=== PATIENT | female | born 1965 ===

== ENCOUNTER 2016-10-20 13:58 | Emergency (ER) | payer OTHER ==
[2016-10-20 14:00] VITALS: BMI 28.3
[2016-10-20 14:08] VITALS: BP 140/66; PULSE 60; RESP 16; TEMP 97.5; O2SAT 98
--- NOTE | 2016-10-20 14:29 | ED PDOC ---
Lower Extremity Pain/Injury Time Seen by Provider: 10/20/16 14:30 Chief Complaint (Nursing): Lower Extremity Problem/Injury Chief Complaint (Provider): Lower extremity problem History Per: Patient History/Exam Limitations: no limitations Onset/Duration Of Symptoms: Days (5x) Current Symptoms Are (Timing): Still Present Severity: Moderate Additional Complaint(s): 50 year old female with no pertinent medical history presents to the ED with complaints of painful blister to left leg that she noticed 5 days ago. Patient thinks blister may have formed due to her varicose veings. She denies any injury or trauma to the area. She reports that she has been taking ibuprofen for the pain with mild relief and denies having difficulty walking. She denies having any other associated symptoms. PMD: [place]aug[place] Emmy Past Medical History Reviewed: Historical Data, Nursing Documentation, Vital Signs Vital Signs: Last Vital Signs Temp 97.5 F L 10/20/16 14:06 Pulse 60 10/20/16 14:06 Resp 16 10/20/16 14:06 BP 140/66 10/20/16 14:06 Pulse Ox 98 10/20/16 14:06 - Medical History PMH: No Chronic Diseases - Surgical History Other surgeries: hysterectomy (2001) - Family History Family History: States: No Known Family Hx - Living Arrangements Living Arrangements: With Family - Social History Current smoker - smoking cessation education provided: No Alcohol: None Drugs: Denies - Home Medications Home Medications: Ambulatory Orders Medication Instructions Recorded No Known Home Med 10/20/16 - Allergies Allergies/Adverse Reactions: Allergies Allergy/AdvReac Type Severity Reaction Status Date / Time No Known Allergies Allergy Verified 10/20/16 14:06 Wells Criteria for PE - Wells Criteria for Pulmonary Embolism Clinical Signs and Symptoms of DVT: No P.E is #1 Diagnosis, or Equally Likely: No Heart Rate >100: No Immobilization at least 3 days;Surgery previous 4 weeks: No Previous, objectively diagnosed PE or DVT: No Hemoptysis: No Malignancy w/treatment within 6 months, or palliative: No Total Score: 0 Review of Systems ROS Statement: Except As Marked, All Systems Reviewed And Found Negative Constitutional: Negative for: Fever Respiratory: Negative for: Shortness of Breath, SOB with Exertion Musculoskeletal: Positive for: Other (blister to left leg) Physical Exam - Reviewed Nursing Documentation Reviewed: Yes Vital Signs Reviewed: Yes - Physical Exam Appears: Positive for: Well, Non-toxic, No Acute Distress Head Exam: Positive for: ATRAUMATIC, NORMOCEPHALIC Skin: Positive for: Normal Color. Negative for: Rash Eye Exam: Positive for: Normal appearance Cardiovascular/Chest: Positive for: Regular Rate, Rhythm Respiratory: Positive for: Normal Breath Sounds. Negative for: Respiratory Distress Extremity: Positive for: Normal ROM, Other (small blood blister noted to left anterior garrett. No surrounding erythema. No erythematous streaking, normal distal sensation). Negative for: Pedal Edema, Calf Tenderness (no calf tenderness or swelling) Neurologic/Psych: Positive for: Alert, Oriented (3x), Gait (steady) - ECG O2 Sat by Pulse Oximetry: 98 (RA) Pulse Ox Interpretation: Normal Medical Decision Making Medical Decision Makin:30 Initial impression: 50 year old female with a blood blister likely secondary to underlying varicose vein. No active bleeding noted, skin is intact, no acute infection noted. Initial plan: * Patient is educated to ice the affected leg and elevate and tocontinue taking ibuprofen for the pain * Patient is instructed to follow up with clinic. Scribe Attestation: Documented by Piper Medeiros, acting as a scribe for Ines Richards PA-C. Provider Scribe Attestation: All medical record entries made by the Scribe were at my direction and personally dictated by me. I have reviewed the chart and agree that the record accurately reflects my personal performance of the history, physical exam, medical decision making, and the department course for this patient. I have also personally directed, reviewed, and agree with the discharge instructions and disposition. Disposition - Clinical Impression Clinical Impression: Blood blister, Varicose vein of leg - Patient ED Disposition Is Patient to be Admitted: No Counseled Patient/Family Regarding: Diagnosis, Need For Followup - Disposition Referrals: [facility] [Outside] Disposition: Routine/Home Disposition Time: 14:49 Condition: STABLE Additional Instructions: Ice affected area and elevate leg. Ibuprofen for pain. Follow up with clinic in 2-3 days, return any time if acutely worse. Instructions: Blister (ED), Varicose Veins (ED) Print Language: [place]
== END 2016-10-20 14:55 | disposition home or self-care (01) ==
LOC: H.ER 13:58
DX: I83.92 Asymptomatic varicose veins of left lower extremity (principal); S80.822A Blister (nonthermal), left lower leg, initial encounter; X58.XXXA Exposure to other specified factors, initial encounter

== ENCOUNTER 2017-01-15 09:46 | Day surgery (SDC) | payer OTHER ==
[2017-01-15] MEDS ORDERED: Lactated Ringer's 500 ML IV ONE (11:47)
[2017-01-15] MEDS ORDERED: Propofol 10 mg/ml Inj (20 ML) ONE (12:08)
[2017-01-15 12:41] VITALS: TEMP 97
[2017-01-15 14:41] VITALS: BP 100/60; PULSE 48; RESP 13; O2SAT 98
== END 2017-01-15 14:49 | disposition home or self-care (01) ==
LOC: H.ENDO 09:46
PROVIDERS: ATTEND Internal Medicine Gastroenterology
DX: Z12.11 Encounter for screening for malignant neoplasm of colon (principal); K64.8 Other hemorrhoids

== ENCOUNTER 2017-01-17 19:58 | Emergency (ER) | payer OTHER ==
[2017-01-17 19:59] VITALS: BMI 28.3
[2017-01-17 20:12] VITALS: BP 117/67; PULSE 53; RESP 16; TEMP 98.4; O2SAT 97
[2017-01-17 20:56] LABS: BASO # 0.1 K/uL (0.0-0.2); BASO % 0.8 % (0.0-2.0); EOS # 0.3 K/uL (0.0-0.7); EOS % 2.4 % (0.0-4.0); HEMATOCRIT 38.9 % (34.0-47.0); LYMPH # 3.2 K/uL (1.0-4.3); LYMPH % 30.4 % (20.0-40.0); MEAN CELL VOLUME 89.6 fl (81.0-99.0); MEAN CORPUSCULAR HEMOGLOBIN 31.1 pg (27.0-31.0); MEAN CORPUSCULAR HGB CONC 34.6 g/dL (33.0-37.0); MEAN PLATELET VOLUME 8.2 fl (7.2-11.7); MONO # 1.1 K/uL (0.0-0.8); MONO % 10.4 % (0.0-10.0); NRBC % 0.1 % (0.0-0.0); WHITE BLOOD COUNT 10.7 K/uL (4.8-10.8)
[2017-01-17 21:26] LABS: ALB/GLOB RATIO 1.3 (1.0-2.1); ALKALINE PHOSPHATASE 82 U/L (38-126); ALT/SGPT 47 U/L (9-52); AST/SGOT 35 U/L (14-36); BILIRUBIN,TOTAL 0.4 mg/dl (0.2-1.3); BLOOD UREA NITROGEN 15 mg/dl (7-17); CALCIUM 9.4 mg/dL (8.4-10.2); CARBON DIOXIDE 26 mmol/L (22-30); CHLORIDE 103 mmol/L (98-107); GFR AFRICAN-AMERICAN > 60; GLUCOSE,RANDOM 122 mg/dL (65-105); POTASSIUM 4.7 MMOL/L (3.6-5.0); SODIUM 138 mmol/l (132-148); TOTAL PROTEIN 7.6 G/DL (6.3-8.2)
[2017-01-18 00:35] LABS: RBC URINE 1 /hpf (0-3); URINE BACTERIA RARE (<OCC); URINE BILIRUBIN NEGATIVE (NEGATIVE); URINE BLOOD NEGATIVE (NEGATIVE); URINE COLOR YELLOW (YELLOW); URINE GLUCOSE (UA) NEG (Normal); URINE KETONE NEGATIVE (NEGATIVE); URINE LEUKOCYTE ESTERASE TRACE Leu/uL (Negative); URINE PROTEIN NEGATIVE (NEGATIVE); URINE UROBILINOGEN 0.2-1.0 mg/dL (0.2-1.0); WBC URINE 6 /hpf (0-5)
--- NOTE | 2017-01-18 01:25 | ED PDOC ---
HPI: Abdomen Time Seen by Provider: 01/17/17 20:25 Chief Complaint (Nursing): Abdominal Pain Chief Complaint (Provider): Abdominal pain x 1 days, nausea History Per: Patient History/Exam Limitations: no limitations Onset/Duration Of Symptoms: Days (1) Outside of [place] travel?: No Current Symptoms Are (Timing): Still Present Location Of Pain/Discomfort: Periumbilical, Suprapubic Quality Of Discomfort: Dull Associated Symptoms: Nausea (Resolved ). denies: Fever, Chills Exacerbating Factors: None Alleviating Factors: None Additional Complaint(s): PT states she had a colonoscopy 2 days ago. PT states she has been having abdominal pain since yesterday. Pt states she called Dr. Leon's office and was told to come to the ER. PT reports nausea earlier that has resolved. Pt states she has intermittent dull, mild pain periumbilical and suprapubic. Normal BMs Past Medical History Reviewed: Historical Data, Nursing Documentation, Vital Signs Vital Signs: Last Vital Signs Temp 98.4 F 01/17/17 20:08 Pulse 53 L 01/17/17 20:08 Resp 16 01/17/17 20:08 BP 117/67 01/17/17 20:08 Pulse Ox 97 01/17/17 20:08 - Medical History PMH: No Chronic Diseases Denies: Bronchitis, Pneumonia - Surgical History Surgical History: No Surg Hx - Family History Family History: States: Unknown Family Hx - Living Arrangements Living Arrangements: With Family - Social History Current smoker - smoking cessation education provided: No - Immunization History Hx Tetanus Toxoid Vaccination: No Hx Influenza Vaccination: No Hx Pneumococcal Vaccination: No - Home Medications Home Medications: Ambulatory Orders Medication Instructions Recorded No Known Home Med 10/20/16 - Allergies Allergies/Adverse Reactions: Allergies Allergy/AdvReac Type Severity Reaction Status Date / Time No Known Allergies Allergy Verified 01/15/17 11:45 Review of Systems ROS Statement: Except As Marked, All Systems Reviewed And Found Negative Gastrointestinal: Positive for: Nausea, Abdominal Pain Physical Exam - Reviewed Nursing Documentation Reviewed: Yes Vital Signs Reviewed: Yes - Physical Exam Appears: Positive for: Well, Non-toxic, No Acute Distress Head Exam: Positive for: ATRAUMATIC, NORMAL INSPECTION, NORMOCEPHALIC Skin: Positive for: Normal Color, Warm, DRY Eye Exam: Positive for: Normal appearance ENT: Positive for: Normal ENT Inspection Neck: Positive for: Normal, Painless ROM Cardiovascular/Chest: Positive for: Regular Rate, Rhythm Respiratory: Positive for: CNT, Normal Breath Sounds Gastrointestinal/Abdominal: Positive for: Normal Exam, Bowel Sounds, Soft. Negative for: Tenderness, Guarding, Rebound Back: Positive for: Normal Inspection Rectal: Positive for: Normal Exam, Stool Is Heme: ((-)). Negative for: Black Stool, Blood Streaked Stool Extremity: Positive for: Normal ROM Neurologic/Psych: Positive for: Alert, Oriented - Laboratory Results Result Diagrams: 01/17/17 20:45 01/17/17 20:45 - ECG O2 Sat by Pulse Oximetry: 97 Medical Decision Making Medical Decision Making: Discussed with Dr. Maxwell. No CT indicated at this time. Colonoscopy normal. Disposition - Clinical Impression Clinical Impression: Abdominal pain - Patient ED Disposition Is Patient to be Admitted: No Counseled Patient/Family Regarding: Diagnosis, Need For Followup - Disposition Disposition: Routine/Home Disposition Time: 01:24 Condition: GOOD Instructions: Abdominal Pain (ED) Forms: [facility] ([place]) Print Language: PORTUGUESE
--- NOTE | 2017-01-18 08:56 | RAD ---
HISTORY: abdominal pain, colonoscopy COMPARISON: No prior. FINDINGS: BOWEL: Mild constipation is noted. No radiographic evidence of small bowel obstruction. BONES: Normal. OTHER FINDINGS: None. IMPRESSION: Mild constipation.
--- NOTE | 2017-01-18 09:14 | RAD ---
HISTORY: Abdominal pain, r/o free air COMPARISON: Comparison is made to 04/05/2015 TECHNIQUE: Chest PA and lateral FINDINGS: LUNGS: No active pulmonary disease. PLEURA: No significant pleural effusion identified. No pneumothorax apparent. CARDIOVASCULAR: Normal. OSSEOUS STRUCTURES: No significant abnormalities. VISUALIZED UPPER ABDOMEN: Normal. OTHER FINDINGS: None. IMPRESSION: No active disease.
--- NOTE | 2017-01-18 10:18 | CARD ---
APPROVED REPORT EKG Measurement Heart [id number] <Conclusion> Sinus bradycardia Otherwise normal ECG
== END 2017-01-18 02:24 | disposition home or self-care (01) ==
LOC: H.ER 19:58
DX: K59.00 Constipation, unspecified (principal); R10.9 Unspecified abdominal pain